=== PATIENT | female | born 1995 | race Hispanic/Latino ===

== ENCOUNTER 2016-12-14 10:09 | Emergency (ER) | payer MEDICAID ==
[2016-12-14 10:10] VITALS: BMI 27.1
[2016-12-14 10:40] VITALS: BP 119/81; PULSE 93; RESP 18; TEMP 98.1; O2SAT 99
--- NOTE | 2016-12-14 11:37 | ED PDOC ---
Arrival/HPI - General Chief Complaint: ENT Problem Time Seen by Provider: 12/14/16 10:46 Historian: Patient - History of Present Illness Narrative History of Present Illness (Text): 12/14/16 11:46 21-year-old female presents today with a one-week history of throat pain and lymphadenopathy. Patient states she was seen by her doctor and was started on Augmentin 2 days ago for swollen lymph node. Patient presents today with continued pain. Denies difficulty breathing or swallowing. Patient states she has tenderness over the lymph node on the left side of the neck. Patient states she's been eating and drinking with pain. No trismus or drooling. Complaining of nasal congestion. Positive sick contacts at home. No other complaints. Past Medical History - Provider Review Nursing Documentation Reviewed: Yes - Travel History Have you recently traveled outside [place] w/in the past 3 mons?: No - Infectious Disease Hx of Infectious Diseases: None - Tetanus Immunization Tetanus Immunization: Unknown - Cardiac Hx Cardiac Disorders: No - Pulmonary Hx Tuberculosis: No - Neurological HX Cerebrovascular Accident: No Hx Seizures: No - Hematological/Oncological Hx Cancer: No - Musculoskeletal/Rheumatological Hx Falls: No - Genitourinary/Gynecological Hx Sexually Transmitted Diseases: No - Psychiatric Hx Substance Use: No - Surgical History Other/Comment: 2015 - Anesthesia Hx Anesthesia: No Family/Social History - Physician Review Nursing Documentation Reviewed: Yes Family/Social History: Unknown Family HX Smoking Status: Never Smoked Hx Alcohol Use: No Hx Substance Use: No Allergies/Home Meds Allergies/Adverse Reactions: Allergies pollen extracts Allergy (Verified 12/14/16 10:40) SHORTNESS OF BREATH shellfish derived Allergy (Verified 12/14/16 10:40) ANAPHYLAXIS Sulfa (Sulfonamide Antibiotics) Allergy (Verified 12/14/16 10:40) SHORTNESS OF BREATH Home Medications: Home Meds Medication Instructions Recorded Confirmed Amoxicillin/Potassium Clav 1 tab PO BID 12/14/16 12/14/16 [Amox-Clav 875-125 mg Tablet] Review of Systems - Review of Systems Constitutional: absent: Fatigue, Fevers ENT: Sore Throat, Sinus Congestion Respiratory: absent: SOB, Cough Cardiovascular: absent: Chest Pain, Palpitations Gastrointestinal: absent: Abdominal Pain, Vomiting Genitourinary Female: absent: Dysuria Musculoskeletal: absent: Arthralgias Skin: absent: Rash, Pruritis Neurological: absent: Headache, Dizziness Hemo/Lymphatic: Other (tender lymphadenopathy) Psychiatric: absent: Anxiety, Depression Physical Exam Vital Signs Reviewed: Yes Vital Signs Temp Pulse Resp BP Pulse Ox 12/14/16 10:33 98.1 F 93 H 18 119/81 99 Temperature: Afebrile Blood Pressure: Normal Pulse: Regular Respiratory Rate: Normal Appearance: Positive for: Well-Appearing, Non-Toxic, Comfortable Pain Distress: None Mental Status: Positive for: Alert and Oriented X 3 - Systems Exam Head: Present: Atraumatic Extroacular Muscles: Present: EOMI Conjunctiva: Present: Normal Ears: Present: Normal, NORMAL TM, Normal Canal. No: Erythema, TM Bulging Mouth: Present: Moist Mucous Membranes, Normal Lips, Normal Tounge, Normal Teeth. No: Drooling, Trismus Pharnyx: Present: Normal. No: ERYTHEMA, EXUDATE, TONSILS ENLARGED, Peritonsilar Swelling, Uvular Deviation, Strider, Soft Palate/Uvular Edema Nose (External): Present: Atraumatic Neck: Present: Normal Range of Motion, Lymphadenopathy (+ left sided tender lymphadenopathy at the angle of the mandible. no erythema; no warmth. ), Trachea Midline. No: MIDLINE TENDERNESS, Paraspinal Tenderness Respiratory/Chest: Present: Clear to Auscultation, Good Air Exchange. No: Respiratory Distress, Accessory Muscle Use Cardiovascular: Present: Regular Rate and Rhythm, Normal S1, S2. No: Murmurs Abdomen: No: Tenderness Neurological: Present: GCS=15 Skin: Present: Warm, Dry, Normal Color. No: Rashes Psychiatric: Present: Alert, Oriented x 3 Medical Decision Making ED Course and Treatment: 12/14/16 11:49 Patient is nontoxic well-appearing no distress with stable vital signs. Complaining of a one-week history of sore throat and left-sided inflamed lymph node. Patient put on Augmentin 2 days ago. Patient with URI symptoms most likely reactive lymphadenopathy. Patient has not been taking any medications for pain. Toradol given for pain in the emergency room. pt reassessment; pt feeling better after medications. I discussed with patient that she must follow-up with a primary care physician after completion of her antibiotics to make sure that the lymphadenopathy has resolved. I have advised that if the lymphadenopathy does not resolve for further workup would be required in order to evaluate for other causes of the tender lymph node. Patient verbalizes understanding of discharge instructions and need for immediate followup. Impression: Lymphadenitis Continue Augmentin as prescribed Motrin every 6 hours as needed for pain Follow up with the primary care physician after completion of the antibiotics for reevaluation of the swollen lymph node. Follow-up with the ENT specialist within the next 2 days Return immediately if symptoms worsen or persist or if new concerning symptoms develop - Medication Orders Current Medication Orders: Discontinued Medications Ketorolac Tromethamine (Toradol) 60 mg IM STAT STA Stop: 12/14/16 10:58 Last Admin: 12/14/16 11:27 Dose: 60 MG IM Administration Charges Document 12/14/16 11:27 SE (Rec: 12/14/16 11:27 SE [id number]) Injection Site MAR Injection Site Right Vastus Lateralis Charges for Administration # of IM Administrations 1 Disposition/Present on Arrival - Present on Arrival Any Indicators Present on Arrival: No History of DVT/PE: No History of Uncontrolled Diabetes: No Urinary Catheter: No History of Decub. Ulcer: No History Surgical Site Infection Following: None - Disposition Have Diagnosis and Disposition been Completed?: Yes Diagnosis: Lymphadenitis Disposition: HOME/ ROUTINE Disposition Time: 11:30 Patient Plan: Discharge Patient Problems: Current Active Problems Problem Status Diagnosed Lymphadenitis Acute Condition: GOOD Discharge Instructions (ExitCare): Lymphadenopathy (ED) Additional Instructions: Continue Augmentin as prescribed Motrin every 6 hours as needed for pain Follow up with the primary care physician after completion of the antibiotics for reevaluation of the swollen lymph node. Follow-up with the ENT specialist within the next 2 days Return immediately if symptoms worsen or persist or if new concerning symptoms develop Prescriptions: Ibuprofen [Motrin] 600 mg PO Q6H PRN #20 tab PRN Reason: pain/fever reduction Referrals: Jamal De Guzman, RENITA, [employer] [Primary Care Provider] - Follow up with primary Forms: WORK NOTE, SCHOOL NOTE
== END 2016-12-14 12:19 | disposition home or self-care (01) ==
LOC: ED 10:09
DX: I88.9 Nonspecific lymphadenitis, unspecified (principal)
CPT/HCPCS: 96372; 99283; J1885

== ENCOUNTER 2017-09-16 11:37 | Emergency (ER) | payer MEDICAID ==
[2017-09-16 11:37] VITALS: BMI 27.1
[2017-09-16 11:53] VITALS: TEMP 98.5
[2017-09-16 12:29] VITALS: RESP 18; O2SAT 100
--- NOTE | 2017-09-16 12:29 | ED PDOC ---
Arrival/HPI - General Chief Complaint: Abdominal Pain Time Seen by Provider: 09/16/17 12:02 Historian: Patient - History of Present Illness Narrative History of Present Illness (Text): 09/16/17 12:29 A 21 year old female presents to the emergency department complaining of right lower abdominal pain for the past 2 weeks. Patient describes her pain has a sharp sensation, which has been constant since yesterday. Patient reports she was recently diagnosed with a ruptured ovarian cyst on 09/06/17 at [facility]. Patient has been following up with her obgyn, who is currently away and instructed her to come in to the emergency room. Patient notes mild pressure with urination but denies any fever, chills, nausea, vomiting, chest pain, shortness of breath or any other complaints. Patient is currently on her menstrual period. Patient also reports scheduled colonoscopy next month for "bloody" soft stool. Time/Duration: Other (2 weeks) Symptom Course: Worsening (yesterday) Quality: Other (sharp) Context: Home Past Medical History - Provider Review Nursing Documentation Reviewed: Yes - Infectious Disease Hx of Infectious Diseases: None - Tetanus Immunization Tetanus Immunization: Unknown - Cardiac Hx Cardiac Disorders: No - Pulmonary Hx Respiratory Disorders: No Hx Tuberculosis: No - Neurological Hx Neurological Disorder: No - HEENT Hx HEENT Disorder: No - Renal Hx Renal Disorder: No - Endocrine/Metabolic Hx Endocrine Disorders: No - Hematological/Oncological Hx Blood Disorders: No - Musculoskeletal/Rheumatological Hx Musculoskeletal Disorders: No Hx Falls: No - Gastrointestinal Hx Gastrointestinal Disorders: No - Genitourinary/Gynecological Hx Sexually Transmitted Diseases: No Other/Comment: OVARIAN CYST - Psychiatric Hx Psychophysiologic Disorder: Yes Hx Depression: Yes Hx Substance Use: No - Surgical History Other/Comment: 2015 - Anesthesia Hx Anesthesia: No Family/Social History - Physician Review Nursing Documentation Reviewed: Yes Family/Social History: No Known Family HX Smoking Status: Never Smoked Hx Alcohol Use: No Hx Substance Use: No Allergies/Home Meds Allergies/Adverse Reactions: Allergies pollen extracts Allergy (Verified 09/16/17 11:45) SHORTNESS OF BREATH shellfish derived Allergy (Verified 09/16/17 11:45) ANAPHYLAXIS shrimp Allergy (Verified 09/06/17 20:57) RASH Sulfa (Sulfonamide Antibiotics) Allergy (Verified 09/06/17 20:57) RASH Home Medications: Home Meds Medication Instructions Recorded Confirmed Sertraline HCl [Zoloft] 08/28/15 08/28/15 Review of Systems - Physician Review All systems were reviewed & negative as marked: Yes - Review of Systems Constitutional: absent: Fevers, Night Sweats Respiratory: absent: SOB Cardiovascular: absent: Chest Pain Gastrointestinal: Abdominal Pain (right lower). absent: Nausea, Vomiting Genitourinary Female: Urine Output Changes (pressure with urination) Physical Exam Vital Signs Reviewed: Yes Vital Signs Temp Pulse Resp BP Pulse Ox 09/16/17 13:17 75 18 116/71 100 09/16/17 12:28 78 18 118/74 100 09/16/17 11:46 98.5 F 81 16 120/78 99 Temperature: Afebrile Blood Pressure: Normal Pulse: Regular Respiratory Rate: Normal Appearance: Positive for: Well-Appearing, Non-Toxic, Comfortable Pain Distress: None Mental Status: Positive for: Alert and Oriented X 3 - Systems Exam Head: Present: Atraumatic, Normocephalic Pupils: Present: PERRL Extroacular Muscles: Present: EOMI Conjunctiva: Present: Normal Respiratory/Chest: Present: Clear to Auscultation, Good Air Exchange. No: Respiratory Distress, Accessory Muscle Use Cardiovascular: Present: Regular Rate and Rhythm, Normal S1, S2. No: Murmurs Abdomen: Present: Tenderness (Right suprapubic tenderness to palpation), Normal Bowel Sounds. No: Distention, Peritoneal Signs, Guarding, Mass/Organomegaly Neurological: Present: GCS=15, CN II-XII Intact, Speech Normal Skin: Present: Warm, Dry, Normal Color. No: Rashes Psychiatric: Present: Alert, Oriented x 3, Normal Insight, Normal Concentration Medical Decision Making ED Course and Treatment: 09/16/17 12:29 Impression: A 21 year old female with abdominal pain Plan: -- Labs -- Urinalysis -- Toradol -- Reassess and disposition Progress Notes: - Lab Interpretations Lab Results: 09/16/17 12:30 09/16/17 12:30 Lab Results 09/16/17 12:30: Sodium 140, Potassium 4.0, Chloride 104, Carbon Dioxide 24, Anion Gap 16, BUN 11, Creatinine 0.7, Est GFR ( Amer) > 60, Est GFR (Non- Af Amer) > 60, Random Glucose 93, Calcium 9.6 09/16/17 12:30: Urine Color Yellow, Urine Appearance Clear, Urine pH 6.0, Ur Specific [place] 1.025, Urine Protein Negative, Urine Glucose (UA) Negative, Urine Ketones Negative, Urine Blood Small H, Urine Nitrate Negative, Urine Bilirubin Negative, Urine Urobilinogen 0.2, Ur Leukocyte Esterase Negative, Urine RBC 10 - 15, Urine WBC 0 - 2, Ur Epithelial Cells 1 - 3, Amorphous Sediment Few, Urine Bacteria Many, Urine HCG, Qual Negative 09/16/17 12:30: WBC 11.3 H D, RBC 4.44, Hgb 12.1, Hct 37.8, MCV 85.1, MCH 27.3, MCHC 32.0, RDW 12.9, Plt Count 336, MPV 9.8, Gran % 61.8, Lymph % (Auto) 32.6, [place] % (Auto) 5.0, Eos % (Auto) 0.4 L, Baso % (Auto) 0.2, Gran # 6.99 H, Lymph # 3.7 H, Cascade # 0.6, Eos # 0.1, Baso # 0.02 I have reviewed the lab results: Yes - Medication Orders Current Medication Orders: Discontinued Medications Ketorolac Tromethamine (Toradol) 60 mg IM STAT STA Stop: 09/16/17 12:31 Last Admin: 09/16/17 12:36 Dose: 60 mg MAR Pain Assessment Document 09/16/17 12:36 EQ (Rec: 09/16/17 12:37 EQ [id number]) Pain Reassessment Is this a pain reassessment? No Sleep Is patient sleeping during reassessment? No Presence of Pain Presence of Pain Yes Pain Scale Used Pain Scale Used Numeric IM Administration Charges Document 09/16/17 12:36 EQ (Rec: 09/16/17 12:37 EQ [id number]) Charges for Administration # of IM Administrations 1 - Scribe Statement The provider has reviewed the documentation as recorded by the Miltonibkimmy Penny Provider Scribe Attestation: All medical record entries made by the Scribe were at my direction and personally dictated by me. I have reviewed the chart and agree that the record accurately reflects my personal performance of the history, physical exam, medical decision making, and the department course for this patient. I have also personally directed, reviewed, and agree with the discharge instructions and disposition. Disposition/Present on Arrival - Present on Arrival Any Indicators Present on Arrival: No History of DVT/PE: No History of Uncontrolled Diabetes: No Urinary Catheter: No History of Decub. Ulcer: No History Surgical Site Infection Following: None - Disposition Have Diagnosis and Disposition been Completed?: Yes Diagnosis: Ovarian cyst Disposition: HOME/ ROUTINE Disposition Time: 13:22 Condition: GOOD Additional Instructions: Follow up as scheduled with your family service aide and GI doctor. Prescriptions: Tramadol HCl [Ultram] 50 mg PO TID PRN #20 tablet PRN Reason: Pain, Moderate (4-7) Forms: [employer] (Kinyarwanda)
[2017-09-16 12:52] LABS: URINE BILIRUBIN NEGATIVE (NEGATIVE); URINE BLOOD SMALL (NEGATIVE); URINE GLUCOSE (UA) NEGATIVE (NEGATIVE); URINE LEUKOCYTE ESTERASE NEGATIVE Leu/uL (NEGATIVE); URINE NITRATE NEGATIVE (NEGATIVE); URINE PROTEIN NEGATIVE mg/dL (<30 mg/dL); URINE UROBILINOGEN 0.2 E.U./dL (<1 E.U./dL)
[2017-09-16 12:54] LABS: BASO # 0.02 K/mm3 (0.0-2.0); BASO % 0.2 % (0.0-3.0); EOS # 0.1 (0.0-0.7); EOS % 0.4 % (1.5-5.0); GRAN # 6.99 (1.4-6.5); GRAN % 61.8 % (50.0-68.0); HEMOGLOBIN 12.1 g/dL (12.0-16.0); LYMPH # 3.7 (1.2-3.4); LYMPH % 32.6 % (22.0-35.0); MEAN CELL VOLUME 85.1 fl (80.0-105.0); MEAN CORPUSCULAR HEMOGLOBIN 27.3 pg (25.0-35.0); MEAN PLATELET VOLUME 9.8 fl (7.0-11.0); MONO # 0.6 (0.1-0.6); RBC 4.44 10^6/uL (3.5-6.1); RED CELL DISTRIBUTION WIDTH 12.9 % (11.5-14.5); URINE APPEARANCE CLEAR (CLEAR); URINE COLOR YELLOW (YELLOW); WHITE BLOOD COUNT 11.3 10^3/ul (4.5-11.0)
[2017-09-16 12:55] LABS: HCG,QUALITATIVE URINE NEGATIVE (NEGATIVE)
[2017-09-16 12:56] LABS: BLOOD UREA NITROGEN 11 mg/dL (7-21); CALCIUM 9.6 mg/dL (8.4-10.5); GFR AFRICAN-AMERICAN > 60; GFR NON-AFRICAN AMERICAN > 60
[2017-09-16 12:58] LABS: URINE WBC 0 - 2 /hpf (0-6)
[2017-09-16 12:59] LABS: URINE AMORPHOUS SEDIMENT FEW; URINE BACTERIA MANY (NEG)
[2017-09-16 13:17] VITALS: BP 116/71; PULSE 75
== END 2017-09-16 13:22 | disposition home or self-care (01) ==
LOC: MERGE 11:37 → ED 11:37
DX: N83.201 Unspecified ovarian cyst, right side (principal)
CPT/HCPCS: 80048; 81001; 84703; 85025; 96372; 99283; J1885

== ENCOUNTER 2017-10-04 22:39 | Emergency (ER) | payer MEDICAID ==
[2017-10-04 22:39] VITALS: BMI 33.6
[2017-10-04 22:49] VITALS: TEMP 98.1; O2SAT 100
--- NOTE | 2017-10-04 23:58 | ED PDOC ---
Arrival/HPI <Miguel Tamayo - Last Filed: 10/05/17 00:12> - General Historian: Patient, Other (boyfriend) - History of Present Illness Time/Duration: Other (see hpi) Context: Home <Joesph Marquez P - Last Filed: 10/05/17 01:44> - General Chief Complaint: Chest Pain Time Seen by Provider: 10/04/17 22:58 - History of Present Illness Narrative History of Present Illness (Text): 10/04/17 23:58 This 21 yo female who denies pmh, presents to this ED c/o cough, sore throat, and chest pain/congestion since this morning. Patient stated her boyfriend's father has similar symptoms. Patient denies fever, sob, abdominal pain, urinary symptoms, dizziness, skin rash, leg swelling, calf pain, recent travel, recent surgery, recent trauma, blood disorder, hormonal replacement therapy/BCP , hemoptysis, or abnormal gait. PERC negative for PE (Joesph Marquez) Past Medical History - Provider Review Nursing Documentation Reviewed: Yes - Infectious Disease Hx of Infectious Diseases: None - Tetanus Immunization Tetanus Immunization: Unknown - Cardiac Hx Cardiac Disorders: No - Pulmonary Hx Respiratory Disorders: No Hx Tuberculosis: No - Neurological Hx Neurological Disorder: No - HEENT Hx HEENT Disorder: No - Renal Hx Renal Disorder: No - Endocrine/Metabolic Hx Endocrine Disorders: No - Hematological/Oncological Hx Blood Disorders: No - Musculoskeletal/Rheumatological Hx Musculoskeletal Disorders: No Hx Falls: No - Gastrointestinal Hx Gastrointestinal Disorders: No - Genitourinary/Gynecological Hx Sexually Transmitted Diseases: No Other/Comment: OVARIAN CYST - Psychiatric Hx Psychophysiologic Disorder: Yes Hx Depression: Yes Hx Substance Use: No - Surgical History Other/Comment: 2015 - Anesthesia Hx Anesthesia: Yes <Joesph Marquez P - Last Filed: 10/05/17 01:44> Family/Social History - Physician Review Nursing Documentation Reviewed: Yes Family/Social History: Other (noncontributory) Smoking Status: Never Smoked Hx Alcohol Use: No Hx Substance Use: No <Nichole Marquezim P - Last Filed: 10/05/17 01:44> Allergies/Home Meds <Miguel Tamayo - Last Filed: 10/05/17 00:12> <Joesph Marquez P - Last Filed: 10/05/17 01:44> Allergies/Adverse Reactions: Allergies pollen extracts Allergy (Verified 09/16/17 11:45) SHORTNESS OF BREATH shellfish derived Allergy (Verified 09/16/17 11:45) ANAPHYLAXIS shrimp Allergy (Verified 09/06/17 20:57) RASH Sulfa (Sulfonamide Antibiotics) Allergy (Verified 09/06/17 20:57) RASH Home Medications: Home Meds Medication Instructions Recorded Confirmed Sertraline HCl [Zoloft] 08/28/15 08/28/15 Review of Systems - Review of Systems Constitutional: Normal. absent: Fatigue, Weight Change, Fevers Eyes: Normal ENT: Sore Throat Respiratory: Cough. absent: SOB, Wheezing Cardiovascular: Chest Pain (see hpi) Gastrointestinal: Normal Genitourinary Female: Normal Musculoskeletal: Normal Skin: Normal Neurological: Normal Endocrine: Normal Hemo/Lymphatic: Normal Psychiatric: Normal <Joesph Marquez - Last Filed: 10/05/17 01:44> Physical Exam Temperature: Afebrile Blood Pressure: Normal Pulse: Regular Respiratory Rate: Normal Appearance: Positive for: Well-Appearing, Non-Toxic, Comfortable Pain Distress: None Mental Status: Positive for: Alert and Oriented X 3 - Systems Exam Head: Present: Atraumatic, Normocephalic Pupils: Present: PERRL Extroacular Muscles: Present: EOMI Conjunctiva: Present: Normal Mouth: Present: Moist Mucous Membranes Pharnyx: Present: Normal. No: ERYTHEMA, EXUDATE, TONSILS ENLARGED Nose (External): Present: Atraumatic Nose (Internal): Present: Normal Inspection Neck: Present: Normal Range of Motion, Trachea Midline. No: Meningeal Signs, MIDLINE TENDERNESS, Paraspinal Tenderness Respiratory/Chest: Present: Clear to Auscultation, Good Air Exchange. No: Accessory Muscle Use, Wheezes, Decreased Breath Sounds, Rales, Retracting, Rhonchi Cardiovascular: Present: Regular Rate and Rhythm, Normal S1, S2. No: Murmurs Abdomen: No: Tenderness Back: Present: Normal Inspection. No: CVA Tenderness Upper Extremity: Present: Normal Inspection, Normal ROM Lower Extremity: Present: Normal Inspection, Normal ROM Neurological: Present: GCS=15, CN II-XII Intact, Speech Normal, Motor Func Grossly Intact, Normal Sensory Function, Normal Cerebellar Funct, Gait Normal Skin: Present: Warm, Dry, Normal Color. No: Rashes Psychiatric: Present: Alert, Oriented x 3, Normal Insight, Normal Concentration <Joesph Marquez P - Last Filed: 10/05/17 01:44> Vital Signs Temp Pulse Resp BP Pulse Ox 10/04/17 22:39 98.1 F 80 16 117/72 100 Medical Decision Making <Miguel Tamayo - Last Filed: 10/05/17 00:12> Re-evaluation Time: 01:28 Reassessment Condition: Re-examined, Improved - Lab Interpretations I have reviewed the lab results: Yes Interpretation: No clinic. lab abnormalty <Joesph Marquez - Last Filed: 10/05/17 01:44> ED Course and Treatment: 10/05/17 01:25 Re-evaluation. Patient feels better. Discussed results and plan with patient who expresses understanding. All questions answered and there is agreement with the plan to discharge home with instructions. Patient stable for discharge. Return if symptoms persist or worsen. Patient tolerated PO fluids during the course of ED visit. Patient stated she has an appointment to see her GI doctor in [facility] tomorrow morning. She stated she may have an endoscopy. Patient was recommended to return to emergency if symptoms worsen. Patient is currently taking acid reflux medication, and Reglan prescribed by her PMD. (Joesph Marquez) - Lab Interpretations Lab Results: Lab Results 10/05/17 00:30: Influenza Typ A,B (EIA) Negative for flu a/b - RAD Interpretation Narrative RAD Interpretations (Text): 10/05/17 01:28 CXR: NAD (Joesph Marquez) Radiology Orders: 10/04/17 23:57 CHEST PORTABLE [RAD] Stat - Medication Orders Current Medication Orders: Discontinued Medications Promethazine HCl/Codeine (Phenergan/Codeine Oral Syrup) 5 ml PO STAT STA Stop: 10/05/17 00:01 Last Admin: 10/05/17 01:11 Dose: 5 ml - PA / MECHANICAL MAINTENANCE INSTRUCTOR / Resident Statement / has reviewed & agrees with the documentation as recorded. <Miguel Tamayo - Last Filed: 10/05/17 00:12> Disposition/Present on Arrival <Miguel Tamayo - Last Filed: 10/05/17 00:12> - Present on Arrival Any Indicators Present on Arrival: No History of DVT/PE: No History of Uncontrolled Diabetes: No Urinary Catheter: No History of Decub. Ulcer: No History Surgical Site Infection Following: None - Disposition Have Diagnosis and Disposition been Completed?: Yes Disposition Time: 01:40 Patient Plan: Discharge <Joesph Marquez Luis Antonio - Last Filed: 10/05/17 01:44> - Disposition Diagnosis: Upper respiratory infection Disposition: HOME/ ROUTINE Patient Problems: Current Active Problems Problem Status Onset Upper respiratory infection Acute Condition: GOOD Discharge Instructions (ExitCare): Upper Respiratory Infection (ED) Additional Instructions: Call private doctor for follow up visit tomorrow. Also, make sure to see your Trucking Manager tomorrow as scheduled by you. Take medication as instructed. return to emergency if symptoms worsen. Do not drive or operate machinery if you are taking Cough medication (phenergan) for at least 8 hours. Prescriptions: Promethazine [Phenergan Syrup] 10 ml PO Q6H PRN #120 ml PRN Reason: Cough Referrals: Complaint Evaluation Officer [facility] [Outside] - Follow up with primary [facility] [Outside] - Follow up with primary Forms: [employer] ([place]), WORK NOTE
[2017-10-05] MEDS ORDERED: Promethazine/Cod 6.25mg-10mg/5ml Syr UD PO STA
[2017-10-05 02:20] VITALS: BP 107/57; PULSE 82; RESP 14
--- NOTE | 2017-10-05 09:06 | RAD ---
HISTORY: cough COMPARISON: No prior. FINDINGS: LUNGS: The lungs are well inflated and clear. PLEURA: No significant pleural effusion identified, no pneumothorax apparent. CARDIOVASCULAR: Normal. OSSEOUS STRUCTURES: No significant abnormalities. VISUALIZED UPPER ABDOMEN: Normal. OTHER FINDINGS: None. IMPRESSION: No active pulmonary disease.
--- NOTE | 2017-10-05 16:48 | CARD ---
APPROVED REPORT EKG Measurement Heart [id number] <Conclusion> Normal sinus rhythm Right axis deviation Possible Right ventricular hypertrophy Abnormal ECG
== END 2017-10-05 02:00 | disposition home or self-care (01) ==
LOC: ED 22:39
DX: J06.9 Acute upper respiratory infection, unspecified (principal)

== ENCOUNTER 2017-10-17 02:03 | Emergency (ER) | payer MEDICAID ==
[2017-10-17 02:45] VITALS: BMI 32.3
[2017-10-17 02:50] VITALS: BP 119/82; PULSE 81; RESP 18; TEMP 98.2; O2SAT 100
--- NOTE | 2017-10-17 02:55 | ED PDOC ---
Arrival/HPI - General Chief Complaint: Female Genitourinary Time Seen by Provider: 10/17/17 02:41 Historian: Patient - History of Present Illness Narrative History of Present Illness (Text): 10/17/17 02:53 21 year old female, whose past medical history includes past UTI, presents to the Emergency department complaining of dysuria and increase urinary frequency for the past 2 days. Patient was unable to get an appointment with her PMD. She reports diagnosis of UTI in the past. Patient denies any fevers, chills, chest pain, shortness of breath, abdominal pain, nausea, vomiting, diarrhea, back pain , neck pain, headache, dizziness, or any other complaint. PMD: Dr. Hardy De Guzman Time/Duration: Other (2 days) Symptom Course: Unchanged Activities at Onset: Light Context: Home Past Medical History - Provider Review Nursing Documentation Reviewed: Yes - Infectious Disease Hx of Infectious Diseases: None - Tetanus Immunization Tetanus Immunization: Unknown - Reproductive Menopause: No - Cardiac Hx Cardiac Disorders: No - Pulmonary Hx Respiratory Disorders: No Hx Tuberculosis: No - Neurological Hx Neurological Disorder: No - HEENT Hx HEENT Disorder: No - Renal Hx Renal Disorder: No - Endocrine/Metabolic Hx Endocrine Disorders: No - Hematological/Oncological Hx Blood Disorders: No - Musculoskeletal/Rheumatological Hx Musculoskeletal Disorders: No Hx Falls: No - Gastrointestinal Hx Gastrointestinal Disorders: Yes Hx Gastroesophageal Reflux: Yes - Genitourinary/Gynecological Hx Genitourinary Disorders: Yes Hx Sexually Transmitted Diseases: No Hx Urinary Tract Infection: Yes Other/Comment: OVARIAN CYST - Psychiatric Hx Psychophysiologic Disorder: Yes Hx Depression: Yes Hx Substance Use: No - Surgical History Other/Comment: 2015 - Anesthesia Hx Anesthesia: Yes Hx Anesthesia Reactions: No Hx Malignant Hyperthermia: No Family/Social History - Physician Review Nursing Documentation Reviewed: Yes Family/Social History: No Known Family HX Smoking Status: Never Smoked Hx Alcohol Use: No Hx Substance Use: No Allergies/Home Meds Allergies/Adverse Reactions: Allergies pollen extracts Allergy (Verified 10/17/17 02:45) SHORTNESS OF BREATH shellfish derived Allergy (Verified 10/17/17 02:45) ANAPHYLAXIS shrimp Allergy (Verified 10/17/17 02:45) RASH Sulfa (Sulfonamide Antibiotics) Allergy (Verified 10/17/17 02:45) RASH Review of Systems - Physician Review All systems were reviewed & negative as marked: Yes - Review of Systems Constitutional: absent: Fevers, Other (Chills) Respiratory: absent: SOB Cardiovascular: absent: Chest Pain Gastrointestinal: absent: Diarrhea, Nausea, Vomiting Genitourinary Female: Dysuria, Frequency Musculoskeletal: absent: Back Pain, Neck Pain Neurological: absent: Headache, Dizziness Physical Exam Vital Signs Reviewed: Yes Vital Signs Temp Pulse Resp BP Pulse Ox 10/17/17 02:15 98.2 F 81 18 119/82 100 Temperature: Afebrile Blood Pressure: Normal Pulse: Regular Respiratory Rate: Normal Appearance: Positive for: Well-Appearing, Non-Toxic, Comfortable Pain Distress: None Mental Status: Positive for: Alert and Oriented X 3 - Systems Exam Head: Present: Atraumatic, Normocephalic Pupils: Present: PERRL Extroacular Muscles: Present: EOMI Conjunctiva: Present: Normal Mouth: Present: Moist Mucous Membranes Neck: Present: Normal Range of Motion Respiratory/Chest: Present: Clear to Auscultation, Good Air Exchange. No: Respiratory Distress, Accessory Muscle Use Cardiovascular: Present: Regular Rate and Rhythm, Normal S1, S2. No: Murmurs Abdomen: Present: Normal Bowel Sounds. No: Tenderness, Distention, Peritoneal Signs Back: Present: Normal Inspection Upper Extremity: Present: Normal Inspection. No: Cyanosis, Edema Lower Extremity: Present: Normal Inspection. No: Edema Neurological: Present: GCS=15, CN II-XII Intact, Speech Normal Skin: Present: Warm, Dry, Normal Color. No: Rashes Psychiatric: Present: Alert, Oriented x 3, Normal Insight, Normal Concentration Medical Decision Making ED Course and Treatment: 10/17/17 02:53 Impression: 21 year old female presents complaining of dysuria and increase urinary frequency for the past 2 days. Plan: -- Macrobid -- Urine Culture -- Urinalysis w/ Micro -- Reassess and disposition Prior Visits: Notes and results from previous visits were reviewed. Patient was last seen in the emergency department on 09/16/17 presents complaining of right lower abdominal pain for the past 2 weeks. Patient was discharged. Progress Notes: - Lab Interpretations Lab Results: Lab Results 10/17/17 02:40: Urine Color Dark yellow, Urine Appearance Cloudy, Urine pH 6.0, Ur Specific [place] >= 1.030, Urine Protein 100 H, Urine Glucose (UA) Negative, Urine Ketones Trace H, Urine Blood Large H, Urine Nitrate Positive H, Urine Bilirubin Negative, Urine Urobilinogen 2.0 H, Ur Leukocyte Esterase Moderate H, Urine RBC 25 - 30, Urine WBC 5 - 10, Ur Epithelial Cells 6 - 8, Urine Bacteria Many I have reviewed the lab results: Yes - Medication Orders Current Medication Orders: Discontinued Medications Nitrofurantoin Macrocrystals (Macrobid) 100 mg PO STAT STA Stop: 10/17/17 03:05 Last Admin: 10/17/17 03:13 Dose: 100 mg - Scribe Statement The provider has reviewed the documentation as recorded by the Stefani Strange Provider Scribe Attestation: All medical record entries made by the Miltonibkimmy were at my direction and personally dictated by me. I have reviewed the chart and agree that the record accurately reflects my personal performance of the history, physical exam, medical decision making, and the department course for this patient. I have also personally directed, reviewed, and agree with the discharge instructions and disposition. Disposition/Present on Arrival - Present on Arrival Any Indicators Present on Arrival: No History of DVT/PE: No History of Uncontrolled Diabetes: No Urinary Catheter: No History of Decub. Ulcer: No History Surgical Site Infection Following: None - Disposition Have Diagnosis and Disposition been Completed?: Yes Diagnosis: Cystitis, Urinary tract infection Disposition: HOME/ ROUTINE Disposition Time: 03:00 Condition: GOOD Discharge Instructions (ExitCare): Urinary Tract Infection in Women (ED) Additional Instructions: Thank you for letting us take care of you today. The emergency medical care you received today was directed at your acute symptoms. If you were prescribed any medication, please fill it and take as directed. It may take several days for your symptoms to resolve. Return to the Emergency Department if your symptoms worsen, do not improve, or if you have any other problems. Please contact your doctor or call one of the physicians/clinics you have been referred to that are listed on the Patient Visit Information form that is included in your discharge packet. Bring any paperwork you were given at discharge with you along with any medications you are taking to your follow up visit. Our treatment cannot replace ongoing medical care by a primary care provider (PCP) outside of the emergency department. Thank you for allowing the [facility] team to be part of your care today. You had a urine culture: It will take several days for the results, if any change in treatment is needed we will contact you. Follow up with our clinic or your doctor in 3-4 days for re-evaluation and further management. Prescriptions: Nitrofurantoin Macrocrystals [Macrobid] 100 mg PO BID #[id number] Referrals: [facility] [Outside] - Follow up with primary [facility] [Outside] - Follow up with primary Forms: [employer] (Malay)
[2017-10-17 03:16] LABS: URINE BILIRUBIN NEGATIVE (NEGATIVE); URINE BLOOD LARGE (NEGATIVE); URINE GLUCOSE (UA) NEGATIVE (NEGATIVE); URINE LEUKOCYTE ESTERASE MODERATE Leu/uL (NEGATIVE); URINE NITRATE POSITIVE (NEGATIVE); URINE PROTEIN 100 mg/dL (<30 mg/dL)
[2017-10-17 03:17] LABS: URINE APPEARANCE CLOUDY (CLEAR); URINE COLOR DARK YELLOW (YELLOW)
[2017-10-17 03:20] LABS: URINE BACTERIA MANY (NEG); URINE RBC 25 - 30 /hpf (0-2)
== END 2017-10-17 03:13 | disposition home or self-care (01) ==
LOC: ED 02:03
DX: N30.90 Cystitis, unspecified without hematuria (principal)